=== PATIENT | male | born 1945 | race Two or more races ===

== ENCOUNTER 2022-12-12 10:05 | Inpatient (IN) | payer MEDICARE, OTHER, MEDICAID ==
[~2022-12-12] VITALS: Ht 167.6 cm; Wt 62.6 kg
[2022-12-12] MEDS ORDERED: SODIUM CHLORIDE 0.9% 1000ML BAG (SEPSIS BOLUS) IV ONE (10:30)
[2022-12-12] MEDS ORDERED: KETOROLAC 15MG/ML VIAL IV ONE (10:30)
[2022-12-12] MEDS ORDERED: KETOROLAC 15MG/ML VIAL IV NR (12:15)
[2022-12-12 12:39] LABS: BASOPHILS % 0.5 % (0.0-2.0); EOSINOPHILS % 0.6 % (0.0-5.0); HEMATOCRIT. 42.1 % (42.0-52.0); LYMPHOCYTES % 7.8 % (20.0-50.0); MEAN CORPUSCULAR HEMOGLOBIN 28.3 pg (28.0-32.0); MEAN PLATELET VOLUME 8.7 fl (7.4-10.4); MONOCYTES % 2.7 % (2.0-8.0); NEUTROPHILS % 88.4 % (40.0-76.0); PLATELET 475 x1000/uL (130-400); RED BLOOD CELL COUNT 4.96 mill/uL (4.7-6.1); RED CELL DISTRIBUTION WIDTH 15.7 % (11.6-14.6)
[2022-12-12 12:49] LABS: CHLORIDE 105 mEq/L (98-107)
[2022-12-12 12:51] LABS: INR 1.2; PARTIAL THROMBOPLASTIN TIME 29.7 sec (23.4-31.0); PROTHROMBIN TIME 12.8 sec (9.6-11.0)
[2022-12-12] MEDS ORDERED: VANCOMYCIN 1G PREMIX 200 ML IV ONE (13:00)
[2022-12-12] MEDS ORDERED: PIPERACILLIN/TAZ 3.375G PREMIX 50 ML IV ONE (13:00)
[2022-12-12] MEDS ORDERED: KCL 10MEQ/50ML PREMIX 50 ML IV ONE (13:30)
[2022-12-12] MEDS ORDERED: IPRATROPIUM/ALBUTEROL 0.5-3(2.5)MG/3ML NEB NEB PRN (14:00)
[2022-12-12] MEDS ORDERED: ACETAMINOPHEN 325MG TABLET PO PRN ×2 (14:00)
[2022-12-12] MEDS ORDERED: DOCUSATE SODIUM 100MG CAPSULE PO PRN (14:00)
[2022-12-12] MEDS ORDERED: CLONIDINE 0.1MG TABLET PO PRN (14:00)
[2022-12-12] MEDS ORDERED: NITROGLYCERIN 0.4MG TABLET SL SL PRN (14:00)
[2022-12-12] MEDS ORDERED: ZOLPIDEM TARTRATE 5MG TABLET PO PRN (14:00)
[2022-12-12] MEDS ORDERED: MAGNESIUM/ALUMINUM HYDROXIDE/SIMETHICONE 30ML UDC PO PRN (14:00)
[2022-12-12] MEDS ORDERED: PIPERACILLIN/TAZ 3.375G PREMIX 50 ML IV SCH (14:00)
[2022-12-12] MEDS ORDERED: HYDROCODONE/ACETAMINOPHEN 10/325MG TABLET PO PRN (14:00)
[2022-12-12] MEDS ORDERED: ONDANSETRON HCL 4MG/2ML INJ IV PRN (14:00)
[2022-12-12] MEDS ORDERED: GUAIFENESIN 200MG/10ML SUGAR FREE UDC PO PRN (14:00)
[2022-12-12 14:38] LABS: CLARITY URINE TURBID (CLEAR); COLOR URINE YELLOW (YELLOW); KETONES URINE NEGATIVE (NEGATIVE); LEUKOCYTE ESTERASE URINE 3+ (NEGATIVE); NITRITE URINE NEGATIVE (NEGATIVE); OCCULT BLOOD URINE 3+ (NEGATIVE); PH URINE 5.5 (4.5-8.0); PROTEIN URINE 2+ (NEGATIVE); SPECIFIC GRAVITY URINE 1.006 (1.005-1.030); UROBILINOGEN URINE 0.2 E.U./dL (0.2-1.0)
[2022-12-12] MEDS: MORPHINE SULFATE 2 MG/ML CPJ (NOT FOR IM USE) IV PRN (14:40)
[2022-12-12] MEDS: DEXT 5%/0.9% NACL KCL 20MEQ/L 1,000 ML IV SCH ×2 (14:43→16:01)
[2022-12-12] MEDS ORDERED: POTASSIUM CHLORIDE 20MEQ TABLET SR PO NR (14:45)
[2022-12-12 15:00] LABS: *AMPHETAMINES SCREEN URINE NEGATIVE (NEGATIVE); *BARBITURATES SCREEN URINE NEGATIVE (NEGATIVE); *BENZODIAZEPINES SCREEN URINE NEGATIVE (NEGATIVE); *COCAINE SCREEN URINE NEGATIVE (NEGATIVE); CANNABINOID URINE SCREEN NEGATIVE (NEGATIVE); METHADONE URINE SCREEN NEGATIVE (NEGATIVE); OPIATES URINE SCREEN NEGATIVE (NEGATIVE); PHENCYCLIDINE URINE SCREEN NEGATIVE (NEGATIVE)
[2022-12-12] MEDS: KCL 20MEQ/100ML PREMIX 100 ML IV NR ×4 (15:00→16:17)
[2022-12-12 16:07] LABS: CREATINE KINASE MB FRACTION 1.1 ng/mL (0.5-3.6)
[2022-12-12 16:16] LABS: T4 FREE 1.22 ng/dL (0.76-1.46)
[2022-12-12 18:54] LABS: FOLIC ACID (FOLATE) SERUM 15.7 ng/mL (>5.38)
[2022-12-12] MEDS: ASCORBIC ACID 500 MG TABLET PO SCH (21:06)
[2022-12-12] MEDS: FAMOTIDINE 20MG TABLET PO SCH (21:06)
[2022-12-12] MEDS: ENOXAPARIN 30MG/0.3ML SYR SUBCUT SCH (21:11)
[2022-12-12] MEDS: PIPERACILLIN/TAZOBACTAM 3.375G in DEXT 5% WATER 50ML IV SCH (23:21)
[2022-12-13 05:59] LABS: BASOPHILS % 1.1 % (0.0-2.0); HEMATOCRIT. 29.4 % (42.0-52.0); HEMOGLOBIN. 9.8 g/dL (14.0-18.0); LYMPHOCYTES % 7.9 % (20.0-50.0); MEAN CORPUSCULAR HEMOGLOBIN 28.5 pg (28.0-32.0); MEAN CORPUSCULAR VOLUME 85.4 fL (80.0-94.0); MEAN PLATELET VOLUME 7.9 fl (7.4-10.4); MONOCYTES % 4.3 % (2.0-8.0); NEUTROPHILS % 84.7 % (40.0-76.0); PLATELET 361 x1000/uL (130-400); RED BLOOD CELL COUNT 3.45 mill/uL (4.7-6.1); RED CELL DISTRIBUTION WIDTH 15.7 % (11.6-14.6)
[2022-12-13 06:09] LABS: CHLORIDE 118 mEq/L (98-107)
[2022-12-13 06:20] LABS: PHOSPHORUS 2.8 mg/dL (2.5-4.9)
[2022-12-13 06:23] LABS: CREATINE KINASE MB FRACTION 1.1 ng/mL (0.5-3.6)
[2022-12-13] MEDS: PIPERACILLIN/TAZOBACTAM 3.375G in DEXT 5% WATER 50ML IV SCH ×3 (09:06→21:40)
[2022-12-13] MEDS: ASCORBIC ACID 500 MG TABLET PO SCH ×2 (09:06→22:18)
[2022-12-13] MEDS: ZINC SULFATE 220 MG ( 50 ) CAPSULE PO SCH (09:06)
[2022-12-13] MEDS ORDERED: NALOXONE HCL 0.4MG/ML VIAL IV PRN (09:30)
[2022-12-13 09:33] VITALS: BP 97/48
[2022-12-13] MEDS: DEXT 5%/0.9% NACL KCL 20MEQ/L 1,000 ML IV SCH (11:32)
[2022-12-13] MEDS: VANCOMYCIN 750MG PREMIX 150 ML IV SCH (11:32)
[2022-12-13 12:00] VITALS: BP 108/50
[2022-12-13] MEDS ORDERED: ALBUTEROL (0.083%) 2.5MG/3ML NEB HHN PRN (14:00)
[2022-12-13] MEDS ORDERED: IPRATROPIUM BROMIDE (0.02%) 0.5MG/2.5ML NEB HHN PRN (14:00)
[2022-12-13 16:00] VITALS: BP 106/52
[2022-12-13] MEDS: MORPHINE SULFATE 2 MG/ML CPJ (NOT FOR IM USE) IV PRN (18:13)
[2022-12-13 20:00] VITALS: BP 102/45
[2022-12-13] MEDS: FAMOTIDINE 20MG TABLET PO SCH (21:00)
[2022-12-13] MEDS: ENOXAPARIN 30MG/0.3ML SYR SUBCUT SCH (22:18)
[2022-12-14] VITALS (8 sets, daily range): BP systolic 102–120; BP diastolic 45–70
[2022-12-14] MEDS: MORPHINE SULFATE 2 MG/ML CPJ (NOT FOR IM USE) IV PRN ×3 (04:05→18:38)
[2022-12-14] MEDS: PIPERACILLIN/TAZOBACTAM 3.375G in DEXT 5% WATER 50ML IV SCH (05:26)
[2022-12-14] MEDS: DEXT 5%/0.9% NACL KCL 20MEQ/L 1,000 ML IV SCH ×2 (06:18→13:59)
[2022-12-14] MEDS: ZINC SULFATE 220 MG ( 50 ) CAPSULE PO SCH (09:44)
[2022-12-14] MEDS: FOLIC ACID 1MG TABLET PO SCH (09:44)
[2022-12-14] MEDS: VANCOMYCIN 750MG PREMIX 150 ML IV SCH (09:44)
[2022-12-14] MEDS: ASCORBIC ACID 500 MG TABLET PO SCH ×2 (09:44→20:58)
[2022-12-14] MEDS: THIAMINE HCL 100MG TABLET PO SCH (09:44)
[2022-12-14] MEDS: MENTHOL/LANOLIN/CALAMINE/ZN OX OINT 71GM TOP SCH ×2 (13:58→20:58)
[2022-12-14] MEDS: MEROPENEM 1,000 MG in SODIUM CHLORIDE 0.9% 100 ML IV SCH (20:58)
[2022-12-14] MEDS: ENOXAPARIN 30MG/0.3ML SYR SUBCUT SCH (20:58)
[2022-12-14] MEDS: FAMOTIDINE 20MG TABLET PO SCH (21:00)
[2022-12-15] VITALS: BP 105/68
[2022-12-15] MEDS: DEXT 5%/0.9% NACL KCL 20MEQ/L 1,000 ML IV SCH (03:35)
[2022-12-15 04:00] VITALS: BP 132/72
[2022-12-15 08:00] VITALS: BP 139/76
[2022-12-15 08:31] LABS: BASOPHILS % 1.2 % (0.0-2.0); EOSINOPHILS % 3.1 % (0.0-5.0); HEMOGLOBIN. 11.2 g/dL (14.0-18.0); LYMPHOCYTES % 17.2 % (20.0-50.0); MEAN CORPUSCULAR HEMOGLOBIN 27.9 pg (28.0-32.0); MEAN CORPUSCULAR VOLUME 89.4 fL (80.0-94.0); MEAN PLATELET VOLUME 8.1 fl (7.4-10.4); MONOCYTES % 3.9 % (2.0-8.0); NEUTROPHILS % 74.6 % (40.0-76.0); PLATELET 576 x1000/uL (130-400); RED BLOOD CELL COUNT 4.03 mill/uL (4.7-6.1); RED CELL DISTRIBUTION WIDTH 16.7 % (11.6-14.6)
[2022-12-15] MEDS: MEROPENEM 1,000 MG in SODIUM CHLORIDE 0.9% 100 ML IV SCH ×2 (08:46→20:23)
[2022-12-15] MEDS: MENTHOL/LANOLIN/CALAMINE/ZN OX OINT 71GM TOP SCH ×2 (08:46→20:24)
[2022-12-15] MEDS: FOLIC ACID 1MG TABLET PO SCH (08:46)
[2022-12-15] MEDS: THIAMINE HCL 100MG TABLET PO SCH (08:46)
[2022-12-15] MEDS: ZINC SULFATE 220 MG ( 50 ) CAPSULE PO SCH (08:46)
[2022-12-15] MEDS: ASCORBIC ACID 500 MG TABLET PO SCH ×2 (08:46→20:23)
[2022-12-15] MEDS: DEXTROSE 5% WATER 1,000 ML IV SCH (10:26)
[2022-12-15] MEDS: VANCOMYCIN 750MG PREMIX 150 ML IV SCH (10:26)
[2022-12-15 12:00] VITALS: BP 160/83
[2022-12-15] MEDS ORDERED: HALOPERIDOL LACTATE 5MG/ML VIAL IM PRN (14:15)
[2022-12-15 16:00] VITALS: BP 153/88
[2022-12-15 20:00] VITALS: BP 169/89
[2022-12-15] MEDS: ENOXAPARIN 30MG/0.3ML SYR SUBCUT SCH (20:24)
[2022-12-15] MEDS: FAMOTIDINE 20MG TABLET PO SCH (20:24)
[2022-12-16] VITALS (7 sets, daily range): BP systolic 111–163; BP diastolic 70–89
[2022-12-16 05:39] LABS: HEMATOCRIT 31.3 % (42.0-52.0); HEMOGLOBIN 10.7 g/dL (14.0-18.0); MEAN CORPUSCULAR HEMOGLOBIN 28.9 pg (28.0-32.0); MEAN CORPUSCULAR VOLUME 84.5 fL (80.0-94.0); PLATELET 568 x1000/uL (130-400); RED BLOOD CELL COUNT 3.71 mill/uL (4.7-6.1); RED CELL DISTRIBUTION WIDTH 15.6 % (11.6-14.6)
[2022-12-16 05:43] LABS: CHLORIDE 113 mEq/L (98-107)
[2022-12-16] MEDS: DEXTROSE 5% WATER 1,000 ML IV SCH ×2 (06:54→13:16)
[2022-12-16] MEDS: ASCORBIC ACID 500 MG TABLET PO SCH ×2 (08:14→20:43)
[2022-12-16] MEDS: MEROPENEM 1,000 MG in SODIUM CHLORIDE 0.9% 100 ML IV SCH ×2 (08:14→20:42)
[2022-12-16] MEDS: MENTHOL/LANOLIN/CALAMINE/ZN OX OINT 71GM TOP SCH ×2 (08:14→20:42)
[2022-12-16] MEDS: ZINC SULFATE 220 MG ( 50 ) CAPSULE PO SCH (08:14)
[2022-12-16] MEDS: VANCOMYCIN 750MG PREMIX 150 ML IV SCH (08:14)
[2022-12-16] MEDS: FOLIC ACID 1MG TABLET PO SCH (08:14)
[2022-12-16] MEDS: THIAMINE HCL 100MG TABLET PO SCH (08:26)
[2022-12-16] MEDS: AMLODIPINE 10MG TABLET PO SCH (09:19)
[2022-12-16] MEDS ORDERED: POTASSIUM CHLORIDE 20MEQ TABLET SR PO SCH (10:00)
[2022-12-16] MEDS: ENOXAPARIN 30MG/0.3ML SYR SUBCUT SCH (20:42)
[2022-12-16] MEDS: FAMOTIDINE 20MG TABLET PO SCH (20:46)
[2022-12-17] VITALS: BP 115/66
[2022-12-17] MEDS: DEXTROSE 5% WATER 1,000 ML IV SCH ×2 (02:43→14:14)
[2022-12-17 04:00] VITALS: BP 123/74
[2022-12-17 08:28] VITALS: BP 132/80
[2022-12-17] MEDS: AMLODIPINE 10MG TABLET PO SCH (08:33)
[2022-12-17] MEDS: MEROPENEM 1,000 MG in SODIUM CHLORIDE 0.9% 100 ML IV SCH ×2 (08:33→20:52)
[2022-12-17] MEDS: THIAMINE HCL 100MG TABLET PO SCH (08:33)
[2022-12-17] MEDS: VANCOMYCIN 750MG PREMIX 150 ML IV SCH (08:33)
[2022-12-17] MEDS: ZINC SULFATE 220 MG ( 50 ) CAPSULE PO SCH (08:34)
[2022-12-17] MEDS: MENTHOL/LANOLIN/CALAMINE/ZN OX OINT 71GM TOP SCH ×2 (08:34→20:51)
[2022-12-17] MEDS: ASCORBIC ACID 500 MG TABLET PO SCH ×2 (08:34→20:52)
[2022-12-17] MEDS: FOLIC ACID 1MG TABLET PO SCH (08:42)
[2022-12-17] MEDS ORDERED: POTASSIUM CHLORIDE 20MEQ TABLET SR PO NR (09:00)
[2022-12-17 12:00] VITALS: BP 144/75
[2022-12-17 16:00] VITALS: BP 116/62
[2022-12-17 20:00] VITALS: BP 105/61
[2022-12-17] MEDS: ENOXAPARIN 30MG/0.3ML SYR SUBCUT SCH (20:51)
[2022-12-17] MEDS: FAMOTIDINE 20MG TABLET PO SCH (20:51)
[2022-12-18] VITALS: BP 120/75
[2022-12-18 04:00] VITALS: BP 121/74
[2022-12-18] MEDS: DEXTROSE 5% WATER 1,000 ML IV SCH ×2 (04:51→16:15)
[2022-12-18 08:09] VITALS: BP 114/65
[2022-12-18] MEDS: FOLIC ACID 1MG TABLET PO SCH (08:15)
[2022-12-18] MEDS: THIAMINE HCL 100MG TABLET PO SCH (08:15)
[2022-12-18] MEDS: ASCORBIC ACID 500 MG TABLET PO SCH ×2 (08:15→20:49)
[2022-12-18] MEDS: ZINC SULFATE 220 MG ( 50 ) CAPSULE PO SCH (08:15)
[2022-12-18] MEDS: MEROPENEM 1,000 MG in SODIUM CHLORIDE 0.9% 100 ML IV SCH ×2 (08:15→20:50)
[2022-12-18] MEDS: AMLODIPINE 10MG TABLET PO SCH (08:16)
[2022-12-18] MEDS: MENTHOL/LANOLIN/CALAMINE/ZN OX OINT 71GM TOP SCH ×2 (08:16→20:52)
[2022-12-18 12:00] VITALS: BP 113/64
[2022-12-18] MEDS ORDERED: [UNRECOGNIZED DRUG - REMARK] XX SCH (14:00)
[2022-12-18 16:00] VITALS: BP 118/64
[2022-12-18 20:00] VITALS: BP 108/53
[2022-12-18] MEDS: ENOXAPARIN 30MG/0.3ML SYR SUBCUT SCH (20:49)
[2022-12-18] MEDS: FAMOTIDINE 20MG TABLET PO SCH (20:49)
[2022-12-19] VITALS: BP 111/60
[2022-12-19 04:00] VITALS: BP 117/63
[2022-12-19 08:00] VITALS: BP 125/72
[2022-12-19] MEDS: ASCORBIC ACID 500 MG TABLET PO SCH ×2 (08:16→21:08)
[2022-12-19] MEDS: ZINC SULFATE 220 MG ( 50 ) CAPSULE PO SCH (08:16)
[2022-12-19] MEDS: THIAMINE HCL 100MG TABLET PO SCH (08:16)
[2022-12-19] MEDS: AMLODIPINE 10MG TABLET PO SCH (08:16)
[2022-12-19] MEDS: FOLIC ACID 1MG TABLET PO SCH (08:16)
[2022-12-19] MEDS: MENTHOL/LANOLIN/CALAMINE/ZN OX OINT 71GM TOP SCH ×2 (08:17→21:09)
[2022-12-19] MEDS: MEROPENEM 1,000 MG in SODIUM CHLORIDE 0.9% 100 ML IV SCH ×2 (08:17→21:08)
[2022-12-19] MEDS: DEXTROSE 5% WATER 1,000 ML IV SCH ×2 (08:17→21:09)
[2022-12-19 12:00] VITALS: BP 123/70
[2022-12-19 16:06] VITALS: BP 124/79
[2022-12-19 20:00] VITALS: BP 130/68
[2022-12-19] MEDS: ENOXAPARIN 30MG/0.3ML SYR SUBCUT SCH (21:08)
[2022-12-19] MEDS: FAMOTIDINE 20MG TABLET PO SCH (21:08)
[2022-12-20] VITALS (7 sets, daily range): BP systolic 91–135; BP diastolic 50–69
[2022-12-20] MEDS: MEROPENEM 1,000 MG in SODIUM CHLORIDE 0.9% 100 ML IV SCH ×2 (08:17→21:11)
[2022-12-20] MEDS: AMLODIPINE 10MG TABLET PO SCH (08:18)
[2022-12-20] MEDS: ZINC SULFATE 220 MG ( 50 ) CAPSULE PO SCH (08:18)
[2022-12-20] MEDS: FOLIC ACID 1MG TABLET PO SCH (08:18)
[2022-12-20] MEDS: THIAMINE HCL 100MG TABLET PO SCH (08:18)
[2022-12-20] MEDS: MENTHOL/LANOLIN/CALAMINE/ZN OX OINT 71GM TOP SCH ×2 (08:18→21:10)
[2022-12-20] MEDS: ASCORBIC ACID 500 MG TABLET PO SCH ×2 (08:18→21:09)
[2022-12-20] MEDS: DEXTROSE 5% WATER 1,000 ML IV SCH (08:22)
[2022-12-20 11:41] LABS: CLARITY URINE CLEAR (CLEAR); COLOR URINE YELLOW (YELLOW); KETONES URINE NEGATIVE (NEGATIVE); LEUKOCYTE ESTERASE URINE 1+ (NEGATIVE); NITRITE URINE NEGATIVE (NEGATIVE); OCCULT BLOOD URINE NEGATIVE (NEGATIVE); PH URINE 6.5 (4.5-8.0); PROTEIN URINE TRACE (NEGATIVE); SPECIFIC GRAVITY URINE 1.009 (1.005-1.030); UROBILINOGEN URINE 0.2 E.U./dL (0.2-1.0)
[2022-12-20 15:31] LABS: BASOPHILS % 0.4 % (0.0-2.0); EOSINOPHILS % 2.5 % (0.0-5.0); HEMATOCRIT. 37.2 % (42.0-52.0); HEMOGLOBIN. 12.3 g/dL (14.0-18.0); LYMPHOCYTES % 23.1 % (20.0-50.0); MEAN CORPUSCULAR HEMOGLOBIN 28.4 pg (28.0-32.0); MEAN CORPUSCULAR VOLUME 85.8 fL (80.0-94.0); MEAN PLATELET VOLUME 7.8 fl (7.4-10.4); MONOCYTES % 6.5 % (2.0-8.0); NEUTROPHILS % 67.5 % (40.0-76.0); PLATELET 397 x1000/uL (130-400); RED BLOOD CELL COUNT 4.34 mill/uL (4.7-6.1); RED CELL DISTRIBUTION WIDTH 15.4 % (11.6-14.6)
[2022-12-20] MEDS: FAMOTIDINE 20MG TABLET PO SCH (21:10)
[2022-12-21] VITALS: BP 112/61
[2022-12-21] MEDS: DEXTROSE 5% WATER 1,000 ML IV SCH ×2 (00:57→12:12)
[2022-12-21 04:00] VITALS: BP 116/59
[2022-12-21 06:59] LABS: MEAN CORPUSCULAR HEMOGLOBIN 28.4 pg (28.0-32.0); MEAN CORPUSCULAR VOLUME 85.4 fL (80.0-94.0); PLATELET 364 x1000/uL (130-400); RED BLOOD CELL COUNT 3.86 mill/uL (4.7-6.1); RED CELL DISTRIBUTION WIDTH 15.4 % (11.6-14.6)
[2022-12-21 08:00] VITALS: BP 123/66
[2022-12-21] MEDS: MEROPENEM 1,000 MG in SODIUM CHLORIDE 0.9% 100 ML IV SCH ×2 (08:09→20:42)
[2022-12-21] MEDS: THIAMINE HCL 100MG TABLET PO SCH (08:09)
[2022-12-21] MEDS: ZINC SULFATE 220 MG ( 50 ) CAPSULE PO SCH (08:09)
[2022-12-21] MEDS: AMLODIPINE 10MG TABLET PO SCH (08:09)
[2022-12-21] MEDS: ASCORBIC ACID 500 MG TABLET PO SCH ×2 (08:09→20:42)
[2022-12-21] MEDS: MENTHOL/LANOLIN/CALAMINE/ZN OX OINT 71GM TOP SCH ×2 (08:10→22:11)
[2022-12-21] MEDS: FOLIC ACID 1MG TABLET PO SCH (08:10)
[2022-12-21 12:00] VITALS: BP 102/67
[2022-12-21] MEDS ORDERED: ROPIVACAINE HCL 1% 20 ML VIAL EPI ONE (13:03)
[2022-12-21] MEDS ORDERED: EPINEPHRINE 1:1000 1 MG/ML AMP ONE (13:04)
[2022-12-21] MEDS ORDERED: KETOROLAC 30MG/ML VIAL ONE (13:04)
[2022-12-21] MEDS ORDERED: MORPHINE SULFATE 10 MG/ML CPJ ONE (13:04)
[2022-12-21] MEDS ORDERED: VANCOMYCIN HCL 1 GM/VIAL ONE (13:05)
[2022-12-21] MEDS ORDERED: TRANEXAMIC ACID 1,000 MG/10 ML IV ONE (13:15)
[2022-12-21] MEDS ORDERED: TRANEXAMIC ACID 1,000 MG in SODIUM CHLORIDE 0.9% 50 ML IV SCH (13:30)
[2022-12-21 16:00] VITALS: BP 117/56
[2022-12-21] MEDS ORDERED: LIDOCAINE HCL/EPINEPHRINE 1%-EPI 1:100,000 20 ML VIAL ONE (16:01)
[2022-12-21] MEDS ORDERED: LIDOCAINE HCL 1%/EPI 1:200,000 30 ML VIAL ONE (16:02)
[2022-12-21] MEDS ORDERED: SUCCINYLCHOLINE CHLORIDE 200MG/10ML IV ONE (16:40)
[2022-12-21] MEDS ORDERED: CEFAZOLIN 1000MG PREMIX 50 ML IV SCH ×2 (16:40→20:00)
[2022-12-21] MEDS ORDERED: ETOMIDATE 2MG/ML 10ML VIAL IV ONE (16:40)
[2022-12-21] MEDS ORDERED: CEFAZOLIN SODIUM 1000MG/VIAL ONE (16:40)
[2022-12-21] MEDS ORDERED: DEXAMETHASONE 4MG/ML 1ML VIAL ONE (16:40)
[2022-12-21] MEDS ORDERED: ROCURONIUM BROMIDE 10MG/ML VIAL 5ML IV ONE (16:40)
[2022-12-21] MEDS ORDERED: ONDANSETRON HCL 4MG/2ML INJ ONE (16:40)
[2022-12-21] MEDS ORDERED: GLYCOPYRROLATE 0.2 MG/ML 2ML VIAL ONE ×2 (16:40→16:41)
[2022-12-21] MEDS ORDERED: NEOSTIGMINE METHYLSULFATE 1MG/ML 10 ML VIAL ONE (16:40)
[2022-12-21] MEDS ORDERED: MIDAZOLAM HCL 2 MG/2 ML VIAL ONE (16:41)
[2022-12-21] MEDS ORDERED: FENTANYL CITRATE/PF 50MCG/ML 2ML VIAL ONE (16:41)
[2022-12-21] MEDS ORDERED: POLYMYXIN B SULFATE 500000 UNITS/VIAL ONE (16:47)
[2022-12-21 20:00] VITALS: BP 105/53
[2022-12-21] MEDS: FAMOTIDINE 20MG TABLET PO SCH (20:41)
[2022-12-21] MEDS: CEFAZOLIN 1000MG PREMIX 50 ML IV SCH (22:12)
[2022-12-22] VITALS: BP 96/53
[2022-12-22] MEDS: DEXTROSE 5% WATER 1,000 ML IV SCH ×2 (02:30→11:16)
[2022-12-22 04:00] VITALS: BP 100/53
[2022-12-22] MEDS: CEFAZOLIN 1000MG PREMIX 50 ML IV SCH ×3 (05:38→21:53)
[2022-12-22 08:00] VITALS: BP 104/58
[2022-12-22] MEDS: MEROPENEM 1,000 MG in SODIUM CHLORIDE 0.9% 100 ML IV SCH ×2 (08:31→21:53)
[2022-12-22] MEDS: ZINC SULFATE 220 MG ( 50 ) CAPSULE PO SCH (08:31)
[2022-12-22] MEDS: MENTHOL/LANOLIN/CALAMINE/ZN OX OINT 71GM TOP SCH ×2 (08:32→21:55)
[2022-12-22] MEDS: THIAMINE HCL 100MG TABLET PO SCH (08:32)
[2022-12-22] MEDS: ASCORBIC ACID 500 MG TABLET PO SCH ×2 (08:32→21:54)
[2022-12-22] MEDS: FOLIC ACID 1MG TABLET PO SCH (08:32)
[2022-12-22] MEDS: AMLODIPINE 10MG TABLET PO SCH (08:38)
[2022-12-22 12:00] VITALS: BP 110/62
[2022-12-22 16:00] VITALS: BP 100/56
[2022-12-22 20:00] VITALS: BP 111/58
[2022-12-22] MEDS: ENOXAPARIN 30MG/0.3ML SYR SUBCUT SCH (21:54)
[2022-12-22] MEDS: FAMOTIDINE 20MG TABLET PO SCH (21:54)
[2022-12-23] VITALS: BP 114/61
[2022-12-23 04:00] VITALS: BP 108/56
[2022-12-23] MEDS: CEFAZOLIN 1000MG PREMIX 50 ML IV SCH ×2 (05:33→13:51)
[2022-12-23] MEDS: DEXTROSE 5% WATER 1,000 ML IV SCH (05:33)
[2022-12-23 08:00] VITALS: BP 123/62
[2022-12-23] MEDS: MENTHOL/LANOLIN/CALAMINE/ZN OX OINT 71GM TOP SCH (08:19)
[2022-12-23] MEDS: AMLODIPINE 10MG TABLET PO SCH (08:19)
[2022-12-23] MEDS: THIAMINE HCL 100MG TABLET PO SCH (08:19)
[2022-12-23] MEDS: MEROPENEM 1,000 MG in SODIUM CHLORIDE 0.9% 100 ML IV SCH (08:19)
[2022-12-23] MEDS: FOLIC ACID 1MG TABLET PO SCH (08:19)
[2022-12-23] MEDS: ZINC SULFATE 220 MG ( 50 ) CAPSULE PO SCH (08:19)
[2022-12-23] MEDS: ASCORBIC ACID 500 MG TABLET PO SCH (08:20)
[2022-12-23 09:48] VITALS: BP 123/62
[2022-12-23 12:00] VITALS: BP 134/68
== END 2022-12-23 14:25 | DRG 853 ==
LOC: ER 10:05 → EDBD 10:05 → MICUSO 13:32 → SUPCPDRO 13:45 → 8WST 12-13 09:35
PROVIDERS: ADMIT Internal Medicine; ATTEND Internal Medicine
PROC: 0SRS0JA Replacement of Left Hip Joint, Femoral Surface with Synthetic Substitute, Uncemented, Open Approach (ICD-10-PCS; principal; 2022-12-21)
DX: A41.51 Sepsis due to Escherichia coli [E. coli] (principal); E43 Unspecified severe protein-calorie malnutrition; S72.012A Unspecified intracapsular fracture of left femur, initial encounter for closed fracture; N17.0 Acute kidney failure with tubular necrosis; G92.8 Other toxic encephalopathy; E87.0 Hyperosmolality and hypernatremia; N13.6 Pyonephrosis; E87.6 Hypokalemia; D64.9 Anemia, unspecified; N18.9 Chronic kidney disease, unspecified; I16.0 Hypertensive urgency; Z20.822 Contact with and (suspected) exposure to COVID-19; R74.01 Elevation of levels of liver transaminase levels; M48.02 Spinal stenosis, cervical region; M48.061 Spinal stenosis, lumbar region without neurogenic claudication; R29.6 Repeated falls; N32.0 Bladder-neck obstruction; G89.29 Other chronic pain; I12.9 Hypertensive chronic kidney disease with stage 1 through stage 4 chronic kidney disease, or unspecified chronic kidney disease; W19.XXXA Unspecified fall, initial encounter; Z68.22 Body mass index [BMI] 22.0-22.9, adult; Z74.01 Bed confinement status; Z86.73 Personal history of transient ischemic attack (TIA), and cerebral infarction without residual deficits; Z82.1 Family history of blindness and visual loss; Y93.89 Activity, other specified; Y92.89 Other specified places as the place of occurrence of the external cause; Y99.8 Other external cause status
CPT/HCPCS: 36415; 71045; 72170; 72192; 73501; 76770; 80048; 80053; 80061; 80202; 80305; 81003; 82040; 82550; 82553; 82607; 82746; 83540; 83550; 83605; 83735; 83880; 84100; 84134; 84145; 84439; 84443; 84484; 85025; 85027; 86850; 86900; 87077; 87186; 87426; 88311; 93005; 93306; 93970; 97162; 97166; 97530; 99285; A6261; C1893; J0330; J0690; J1100; J1630; J1650; J1885; J2185; J2250; J2270; J2405; J2543; J2710; J2795; J3010; J3370; J3480; J3490; J7030; J7050; J7060; J7070; A4315; C1776

== ENCOUNTER 2022-12-23 14:23 | Inpatient (IN) | payer MEDICARE, OTHER, MEDICAID ==
[~2022-12-23] VITALS: Ht 167.6 cm; Wt 59.0 kg
[2022-12-23 14:30] VITALS: BP_SYST 127; BP_DIAS 62; BP_DIAS 68
[2022-12-23] MEDS ORDERED: CLONIDINE 0.1MG TABLET PO PRN (15:15)
[2022-12-23] MEDS ORDERED: MAGNESIUM/ALUMINUM HYDROXIDE/SIMETHICONE 30ML UDC PO PRN (15:15)
[2022-12-23] MEDS ORDERED: HALOPERIDOL LACTATE 5MG/ML VIAL IM PRN (15:15)
[2022-12-23] MEDS ORDERED: GUAIFENESIN 200MG/10ML SUGAR FREE UDC PO PRN (15:15)
[2022-12-23] MEDS ORDERED: ACETAMINOPHEN 325MG TABLET PO PRN (15:15)
[2022-12-23] MEDS ORDERED: ONDANSETRON HCL 4MG/2ML INJ IV PRN (15:15)
[2022-12-23] MEDS ORDERED: NITROGLYCERIN 0.4MG TABLET SL SL PRN (15:15)
[2022-12-23 19:35] VITALS: BP 121/47
[2022-12-23] MEDS: FAMOTIDINE 20MG TABLET PO SCH (20:28)
[2022-12-23] MEDS: ASCORBIC ACID 500 MG TABLET PO SCH (20:28)
[2022-12-23] MEDS: ENOXAPARIN 30MG/0.3ML SYR SUBCUT SCH (20:35)
[2022-12-23] MEDS: MEROPENEM 1,000 MG in SODIUM CHLORIDE 0.9% 100 ML IV SCH (21:00)
[2022-12-23] MEDS: MENTHOL/LANOLIN/CALAMINE/ZN OX OINT 71GM TOP SCH (21:00)
[2022-12-24 06:45] LABS: BASOPHILS % 0.9 % (0.0-2.0); EOSINOPHILS % 1.2 % (0.0-5.0); HEMATOCRIT. 32.5 % (42.0-52.0); HEMOGLOBIN. 10.9 g/dL (14.0-18.0); LYMPHOCYTES % 32.6 % (20.0-50.0); MEAN CORPUSCULAR HEMOGLOBIN 28.2 pg (28.0-32.0); MEAN CORPUSCULAR VOLUME 84.2 fL (80.0-94.0); MEAN PLATELET VOLUME 8.3 fl (7.4-10.4); MONOCYTES % 6.3 % (2.0-8.0); PLATELET 321 x1000/uL (130-400); RED BLOOD CELL COUNT 3.86 mill/uL (4.7-6.1); RED CELL DISTRIBUTION WIDTH 15.2 % (11.6-14.6)
[2022-12-24] MEDS: ACETAMINOPHEN 325MG TABLET PO PRN ×2 (07:08→22:50)
[2022-12-24 07:34] LABS: CHLORIDE 107 mEq/L (98-107)
[2022-12-24 08:00] VITALS: BP 122/66
[2022-12-24] MEDS: ASCORBIC ACID 500 MG TABLET PO SCH ×2 (09:09→20:58)
[2022-12-24] MEDS: AMLODIPINE 10MG TABLET PO SCH (09:10)
[2022-12-24] MEDS: THIAMINE HCL 100MG TABLET PO SCH (09:10)
[2022-12-24] MEDS: ZINC SULFATE 220 MG ( 50 ) CAPSULE PO SCH (09:10)
[2022-12-24] MEDS: FOLIC ACID 1MG TABLET PO SCH (09:10)
[2022-12-24] MEDS: MENTHOL/LANOLIN/CALAMINE/ZN OX OINT 71GM TOP SCH ×2 (09:11→21:07)
[2022-12-24] MEDS: DEXTROSE 5% WATER 1,000 ML IV SCH ×2 (09:30→17:55)
[2022-12-24] MEDS: MEROPENEM 1,000 MG in SODIUM CHLORIDE 0.9% 100 ML IV SCH ×2 (09:47→21:08)
[2022-12-24 12:00] VITALS: BP 120/70
[2022-12-24] MEDS ORDERED: POTASSIUM CHLORIDE 20MEQ TABLET SR PO NR (12:45)
[2022-12-24 16:00] VITALS: BP 125/74
[2022-12-24 19:41] VITALS: BP 112/48
[2022-12-24] MEDS: ENOXAPARIN 30MG/0.3ML SYR SUBCUT SCH (20:58)
[2022-12-24] MEDS: FAMOTIDINE 20MG TABLET PO SCH (20:58)
[2022-12-24] MEDS: DOCUSATE SODIUM 100MG CAPSULE PO PRN (20:58)
[2022-12-25 06:01] LABS: FERRITIN 612 ng/mL (22-322)
[2022-12-25 06:15] LABS: BASOPHILS % 1.1 % (0.0-2.0); EOSINOPHILS % 2.7 % (0.0-5.0); HEMATOCRIT. 31.1 % (42.0-52.0); HEMOGLOBIN. 10.1 g/dL (14.0-18.0); LYMPHOCYTES % 33.1 % (20.0-50.0); MEAN CORPUSCULAR VOLUME 85.7 fL (80.0-94.0); MEAN PLATELET VOLUME 8.3 fl (7.4-10.4); MONOCYTES % 6.2 % (2.0-8.0); NEUTROPHILS % 56.9 % (40.0-76.0); PLATELET 323 x1000/uL (130-400); RED BLOOD CELL COUNT 3.63 mill/uL (4.7-6.1); RED CELL DISTRIBUTION WIDTH 15.3 % (11.6-14.6)
[2022-12-25 06:27] LABS: CHLORIDE 110 mEq/L (98-107)
[2022-12-25 06:45] LABS: TOTAL IRON BINDING CAPACITY 185 ug/dL (250-450)
[2022-12-25 07:45] LABS: VITAMIN B12 SERUM 355 pg/mL (211-911)
[2022-12-25 08:00] VITALS: BP 107/62
[2022-12-25] MEDS ORDERED: LACTULOSE 20G/30ML UDC PO SCH (08:45)
[2022-12-25] MEDS: ASCORBIC ACID 500 MG TABLET PO SCH ×2 (08:49→20:21)
[2022-12-25] MEDS: FOLIC ACID 1MG TABLET PO SCH (08:49)
[2022-12-25] MEDS: THIAMINE HCL 100MG TABLET PO SCH (08:49)
[2022-12-25] MEDS: ZINC SULFATE 220 MG ( 50 ) CAPSULE PO SCH (08:50)
[2022-12-25] MEDS: AMLODIPINE 10MG TABLET PO SCH (08:52)
[2022-12-25] MEDS: MEROPENEM 1,000 MG in SODIUM CHLORIDE 0.9% 100 ML IV SCH ×2 (08:52→20:19)
[2022-12-25] MEDS: MENTHOL/LANOLIN/CALAMINE/ZN OX OINT 71GM TOP SCH ×2 (08:53→20:24)
[2022-12-25] MEDS: DEXTROSE 5% WATER 1,000 ML IV SCH ×3 (09:30→20:35)
[2022-12-25] MEDS ORDERED: NALOXONE HCL 0.4MG/ML VIAL IV PRN (09:45)
[2022-12-25 12:00] VITALS: BP 112/69
[2022-12-25] MEDS: FERROUS SULFATE 325MG TABLET PO SCH ×2 (12:54→17:29)
[2022-12-25] MEDS: CYANOCOBALAMIN 1000MCG/ML VIAL IM SCH (12:54)
[2022-12-25 20:00] VITALS: BP 123/64
[2022-12-25] MEDS: ACETAMINOPHEN 325MG TABLET PO PRN (20:20)
[2022-12-25] MEDS: FAMOTIDINE 20MG TABLET PO SCH (20:20)
[2022-12-25] MEDS: ENOXAPARIN 30MG/0.3ML SYR SUBCUT SCH (20:22)
[2022-12-26] MEDS: DEXTROSE 5% WATER 1,000 ML IV SCH ×2 (06:18→23:15)
[2022-12-26] MEDS: ACETAMINOPHEN 325MG TABLET PO PRN ×3 (06:31→16:24)
[2022-12-26 08:00] VITALS: BP 146/72
[2022-12-26] MEDS: ASCORBIC ACID 500 MG TABLET PO SCH ×3 (09:00→21:04)
[2022-12-26] MEDS: MENTHOL/LANOLIN/CALAMINE/ZN OX OINT 71GM TOP SCH ×2 (09:00→21:48)
[2022-12-26] MEDS: MEROPENEM 1,000 MG in SODIUM CHLORIDE 0.9% 100 ML IV SCH ×2 (10:37→21:04)
[2022-12-26] MEDS: THIAMINE HCL 100MG TABLET PO SCH (10:38)
[2022-12-26] MEDS: FERROUS SULFATE 325MG TABLET PO SCH ×3 (10:39→13:14)
[2022-12-26] MEDS: AMLODIPINE 10MG TABLET PO SCH (10:39)
[2022-12-26] MEDS: CYANOCOBALAMIN 1000MCG/ML VIAL IM SCH (10:40)
[2022-12-26] MEDS: ZINC SULFATE 220 MG ( 50 ) CAPSULE PO SCH (10:40)
[2022-12-26] MEDS: FOLIC ACID 1MG TABLET PO SCH (10:42)
[2022-12-26 20:00] VITALS: BP 111/62
[2022-12-26] MEDS: FAMOTIDINE 20MG TABLET PO SCH (21:04)
[2022-12-26] MEDS: ENOXAPARIN 30MG/0.3ML SYR SUBCUT SCH (21:05)
[2022-12-27] MEDS: HYDROCODONE/ACETAMINOPHEN 10/325MG TABLET PO PRN ×2 (00:40→18:16)
[2022-12-27 08:00] VITALS: BP 120/66
[2022-12-27] MEDS: FERROUS SULFATE 325MG TABLET PO SCH ×3 (08:53→17:53)
[2022-12-27] MEDS: FOLIC ACID 1MG TABLET PO SCH (08:53)
[2022-12-27] MEDS: ASCORBIC ACID 500 MG TABLET PO SCH ×2 (08:53→08:55)
[2022-12-27] MEDS: AMLODIPINE 10MG TABLET PO SCH (08:54)
[2022-12-27] MEDS: THIAMINE HCL 100MG TABLET PO SCH (08:54)
[2022-12-27] MEDS: ZINC SULFATE 220 MG ( 50 ) CAPSULE PO SCH (08:54)
[2022-12-27] MEDS: CYANOCOBALAMIN 1000MCG/ML VIAL IM SCH (08:55)
[2022-12-27] MEDS: MENTHOL/LANOLIN/CALAMINE/ZN OX OINT 71GM TOP SCH ×2 (09:00→21:47)
[2022-12-27] MEDS: MEROPENEM 1,000 MG in SODIUM CHLORIDE 0.9% 100 ML IV SCH ×2 (09:00→21:46)
[2022-12-27 19:41] VITALS: BP 112/56
[2022-12-27] MEDS: FAMOTIDINE 20MG TABLET PO SCH (21:46)
[2022-12-27] MEDS: FINASTERIDE 5MG TABLET PO SCH (21:47)
[2022-12-27] MEDS: ENOXAPARIN 30MG/0.3ML SYR SUBCUT SCH (21:47)
[2022-12-27] MEDS: ACETAMINOPHEN 325MG TABLET PO PRN (21:51)
[2022-12-27] MEDS: TAMSULOSIN HCL 0.4MG SR CAPSULE PO SCH (21:52)
[2022-12-28 08:00] VITALS: BP 104/55
[2022-12-28] MEDS: THIAMINE HCL 100MG TABLET PO SCH (08:33)
[2022-12-28] MEDS: ASCORBIC ACID 500 MG TABLET PO SCH (08:33)
[2022-12-28] MEDS: FOLIC ACID 1MG TABLET PO SCH (08:33)
[2022-12-28] MEDS: ZINC SULFATE 220 MG ( 50 ) CAPSULE PO SCH (08:33)
[2022-12-28] MEDS: FERROUS SULFATE 325MG TABLET PO SCH ×3 (08:34→17:00)
[2022-12-28] MEDS: CYANOCOBALAMIN 1000MCG/ML VIAL IM SCH (08:34)
[2022-12-28] MEDS: AMLODIPINE 10MG TABLET PO SCH (08:35)
[2022-12-28] MEDS: HYDROCODONE/ACETAMINOPHEN 10/325MG TABLET PO PRN (08:36)
[2022-12-28] MEDS: MENTHOL/LANOLIN/CALAMINE/ZN OX OINT 71GM TOP SCH ×2 (09:00→21:41)
[2022-12-28 12:00] VITALS: BP 96/52
[2022-12-28 16:00] VITALS: BP 101/4
[2022-12-28 17:38] LABS: CLARITY URINE TURBID (CLEAR); COLOR URINE YELLOW (YELLOW); KETONES URINE NEGATIVE (NEGATIVE); LEUKOCYTE ESTERASE URINE 3+ (NEGATIVE); NITRITE URINE NEGATIVE (NEGATIVE); OCCULT BLOOD URINE 1+ (NEGATIVE); PROTEIN URINE TRACE (NEGATIVE); SPECIFIC GRAVITY URINE 1.004 (1.005-1.030); UROBILINOGEN URINE 0.2 E.U./dL (0.2-1.0)
[2022-12-28 20:00] VITALS: BP 114/53
[2022-12-28] MEDS: TAMSULOSIN HCL 0.4MG SR CAPSULE PO SCH (21:41)
[2022-12-28] MEDS: ENOXAPARIN 30MG/0.3ML SYR SUBCUT SCH (21:41)
[2022-12-28] MEDS: FAMOTIDINE 20MG TABLET PO SCH (21:41)
[2022-12-28] MEDS: FINASTERIDE 5MG TABLET PO SCH (21:41)
[2022-12-28] MEDS: ACETAMINOPHEN 325MG TABLET PO PRN (21:42)
[2022-12-28 22:45] VITALS: BP 114/53
[2022-12-29 08:00] VITALS: BP 100/51
[2022-12-29] MEDS: FOLIC ACID 1MG TABLET PO SCH (08:27)
[2022-12-29] MEDS: ACETAMINOPHEN 325MG TABLET PO PRN (08:27)
[2022-12-29] MEDS: THIAMINE HCL 100MG TABLET PO SCH (08:27)
[2022-12-29] MEDS: FERROUS SULFATE 325MG TABLET PO SCH ×3 (08:27→17:08)
[2022-12-29] MEDS: CYANOCOBALAMIN 1000MCG/ML VIAL IM SCH (08:27)
[2022-12-29] MEDS: ASCORBIC ACID 500 MG TABLET PO SCH (08:27)
[2022-12-29] MEDS: ZINC SULFATE 220 MG ( 50 ) CAPSULE PO SCH (08:27)
[2022-12-29] MEDS: AMLODIPINE 10MG TABLET PO SCH (09:00)
[2022-12-29] MEDS: MENTHOL/LANOLIN/CALAMINE/ZN OX OINT 71GM TOP SCH ×2 (09:00→21:02)
[2022-12-29 20:00] VITALS: BP 122/53
[2022-12-29] MEDS: FINASTERIDE 5MG TABLET PO SCH (21:00)
[2022-12-29] MEDS: TAMSULOSIN HCL 0.4MG SR CAPSULE PO SCH (21:00)
[2022-12-29] MEDS: FAMOTIDINE 20MG TABLET PO SCH (21:00)
[2022-12-29] MEDS: ENOXAPARIN 30MG/0.3ML SYR SUBCUT SCH (21:01)
[2022-12-29] MEDS: HYDROCODONE/ACETAMINOPHEN 5/325MG TABLET PO PRN (21:02)
[2022-12-30 06:24] LABS: BASOPHILS % 0.6 % (0.0-2.0); CHLORIDE 108 mEq/L (98-107); EOSINOPHILS % 8.5 % (0.0-5.0); HEMOGLOBIN. 9.1 g/dL (14.0-18.0); LYMPHOCYTES % 39.7 % (20.0-50.0); MEAN CORPUSCULAR HEMOGLOBIN 28.5 pg (28.0-32.0); MEAN CORPUSCULAR VOLUME 84.8 fL (80.0-94.0); MEAN PLATELET VOLUME 7.3 fl (7.4-10.4); MONOCYTES % 9.1 % (2.0-8.0); NEUTROPHILS % 42.1 % (40.0-76.0); PLATELET 321 x1000/uL (130-400); RED BLOOD CELL COUNT 3.19 mill/uL (4.7-6.1); RED CELL DISTRIBUTION WIDTH 15.5 % (11.6-14.6)
[2022-12-30 08:00] VITALS: BP 109/51
[2022-12-30] MEDS: ASCORBIC ACID 500 MG TABLET PO SCH (09:00)
[2022-12-30] MEDS: AMLODIPINE 10MG TABLET PO SCH (09:00)
[2022-12-30] MEDS: ZINC SULFATE 220 MG ( 50 ) CAPSULE PO SCH (09:01)
[2022-12-30] MEDS: HYDROCODONE/ACETAMINOPHEN 5/325MG TABLET PO PRN (09:01)
[2022-12-30] MEDS: FOLIC ACID 1MG TABLET PO SCH (09:02)
[2022-12-30] MEDS: THIAMINE HCL 100MG TABLET PO SCH (09:02)
[2022-12-30] MEDS: FERROUS SULFATE 325MG TABLET PO SCH ×3 (09:02→16:22)
[2022-12-30] MEDS: CYANOCOBALAMIN 1000MCG/ML VIAL IM SCH (09:02)
[2022-12-30] MEDS: MENTHOL/LANOLIN/CALAMINE/ZN OX OINT 71GM TOP SCH ×2 (09:07→21:07)
[2022-12-30] MEDS ORDERED: POTASSIUM CHLORIDE 20MEQ TABLET SR PO NR (16:15)
[2022-12-30 19:10] LABS: 25-HYDROXY VITAMIN D3 17 ng/mL (.)
[2022-12-30 20:00] VITALS: BP 96/50
[2022-12-30] MEDS: TAMSULOSIN HCL 0.4MG SR CAPSULE PO SCH (21:00)
[2022-12-30] MEDS: FAMOTIDINE 20MG TABLET PO SCH (21:04)
[2022-12-30] MEDS: FINASTERIDE 5MG TABLET PO SCH (21:04)
[2022-12-30] MEDS: ENOXAPARIN 30MG/0.3ML SYR SUBCUT SCH (21:05)
[2022-12-31] MEDS: DEXTROSE 5% WATER 1,000 ML IV SCH ×3 (05:37→23:15)
[2022-12-31 08:00] VITALS: BP 114/68
[2022-12-31] MEDS: FERROUS SULFATE 325MG TABLET PO SCH ×3 (09:00→16:53)
[2022-12-31] MEDS: MENTHOL/LANOLIN/CALAMINE/ZN OX OINT 71GM TOP SCH ×2 (09:00→20:24)
[2022-12-31] MEDS: CYANOCOBALAMIN 1000MCG/ML VIAL IM SCH (10:26)
[2022-12-31] MEDS: THIAMINE HCL 100MG TABLET PO SCH (10:27)
[2022-12-31] MEDS: ZINC SULFATE 220 MG ( 50 ) CAPSULE PO SCH (10:27)
[2022-12-31] MEDS: FOLIC ACID 1MG TABLET PO SCH (10:28)
[2022-12-31] MEDS: AMLODIPINE 10MG TABLET PO SCH (10:29)
[2022-12-31] MEDS: ASCORBIC ACID 500 MG TABLET PO SCH (10:29)
[2022-12-31] MEDS: ERGOCALCIFEROL 50000UNITS CAPSULE PO SCH (15:27)
[2022-12-31 20:17] VITALS: BP 112/69
[2022-12-31] MEDS: FAMOTIDINE 20MG TABLET PO SCH (20:23)
[2022-12-31] MEDS: FINASTERIDE 5MG TABLET PO SCH (20:23)
[2022-12-31] MEDS: ENOXAPARIN 30MG/0.3ML SYR SUBCUT SCH (20:24)
[2022-12-31] MEDS: TAMSULOSIN HCL 0.4MG SR CAPSULE PO SCH (20:28)
[2023-01-01 08:00] VITALS: BP 121/59
[2023-01-01] MEDS: ZINC SULFATE 220 MG ( 50 ) CAPSULE PO SCH (08:54)
[2023-01-01] MEDS: THIAMINE HCL 100MG TABLET PO SCH (08:54)
[2023-01-01] MEDS: AMLODIPINE 10MG TABLET PO SCH (08:54)
[2023-01-01] MEDS: FOLIC ACID 1MG TABLET PO SCH (08:54)
[2023-01-01] MEDS: ASCORBIC ACID 500 MG TABLET PO SCH (08:55)
[2023-01-01] MEDS: FERROUS SULFATE 325MG TABLET PO SCH ×3 (08:55→17:39)
[2023-01-01] MEDS: MENTHOL/LANOLIN/CALAMINE/ZN OX OINT 71GM TOP SCH ×2 (08:56→21:52)
[2023-01-01] MEDS ORDERED: POTASSIUM CHLORIDE 20MEQ TABLET SR PO SCH (12:00)
[2023-01-01] MEDS: DEXTROSE 5% WATER 1,000 ML IV SCH (12:48)
[2023-01-01] MEDS: HYDROCODONE/ACETAMINOPHEN 5/325MG TABLET PO PRN (13:42)
[2023-01-01 19:47] VITALS: BP 130/67
[2023-01-01] MEDS: FAMOTIDINE 20MG TABLET PO SCH (21:48)
[2023-01-01] MEDS: ACETAMINOPHEN 325MG TABLET PO PRN (21:48)
[2023-01-01] MEDS: FINASTERIDE 5MG TABLET PO SCH (21:49)
[2023-01-01] MEDS: TAMSULOSIN HCL 0.4MG SR CAPSULE PO SCH (21:49)
[2023-01-01] MEDS: ENOXAPARIN 30MG/0.3ML SYR SUBCUT SCH (21:49)
[2023-01-02] MEDS: DEXTROSE 5% WATER 1,000 ML IV SCH (01:55)
[2023-01-02 06:31] LABS: CHLORIDE 104 mEq/L (98-107)
[2023-01-02 07:58] VITALS: BP 109/58
[2023-01-02] MEDS: THIAMINE HCL 100MG TABLET PO SCH (08:14)
[2023-01-02] MEDS: ASCORBIC ACID 500 MG TABLET PO SCH (08:14)
[2023-01-02] MEDS: AMLODIPINE 10MG TABLET PO SCH (08:14)
[2023-01-02] MEDS: ZINC SULFATE 220 MG ( 50 ) CAPSULE PO SCH (08:14)
[2023-01-02] MEDS: FERROUS SULFATE 325MG TABLET PO SCH ×3 (08:14→16:30)
[2023-01-02] MEDS: FOLIC ACID 1MG TABLET PO SCH (08:14)
[2023-01-02] MEDS: DOCUSATE SODIUM 100MG CAPSULE PO PRN (08:14)
[2023-01-02] MEDS: MENTHOL/LANOLIN/CALAMINE/ZN OX OINT 71GM TOP SCH ×2 (08:18→22:02)
[2023-01-02] MEDS: ACETAMINOPHEN 325MG TABLET PO PRN ×2 (17:43→22:03)
[2023-01-02 20:00] VITALS: BP 112/64
[2023-01-02] MEDS: TAMSULOSIN HCL 0.4MG SR CAPSULE PO SCH (22:01)
[2023-01-02] MEDS: FAMOTIDINE 20MG TABLET PO SCH (22:01)
[2023-01-02] MEDS: FINASTERIDE 5MG TABLET PO SCH (22:01)
[2023-01-02] MEDS: ENOXAPARIN 30MG/0.3ML SYR SUBCUT SCH (22:02)
[2023-01-03 08:00] VITALS: BP 112/58
[2023-01-03] MEDS: FOLIC ACID 1MG TABLET PO SCH (08:29)
[2023-01-03] MEDS: ZINC SULFATE 220 MG ( 50 ) CAPSULE PO SCH (08:29)
[2023-01-03] MEDS: ASCORBIC ACID 500 MG TABLET PO SCH (08:29)
[2023-01-03] MEDS: THIAMINE HCL 100MG TABLET PO SCH (08:29)
[2023-01-03] MEDS: AMLODIPINE 10MG TABLET PO SCH (08:42)
[2023-01-03] MEDS: FERROUS SULFATE 325MG TABLET PO SCH ×3 (08:44→18:12)
[2023-01-03] MEDS: MENTHOL/LANOLIN/CALAMINE/ZN OX OINT 71GM TOP SCH ×2 (08:47→21:32)
[2023-01-03 20:00] VITALS: BP 95/54
[2023-01-03] MEDS: FAMOTIDINE 20MG TABLET PO SCH (21:30)
[2023-01-03] MEDS: FINASTERIDE 5MG TABLET PO SCH (21:30)
[2023-01-03] MEDS: ENOXAPARIN 30MG/0.3ML SYR SUBCUT SCH (21:30)
[2023-01-03] MEDS: TAMSULOSIN HCL 0.4MG SR CAPSULE PO SCH (21:30)
[2023-01-03] MEDS: ACETAMINOPHEN 325MG TABLET PO PRN (21:36)
[2023-01-04 06:12] LABS: BASOPHILS % 0.2 % (0.0-2.0); EOSINOPHILS % 5.6 % (0.0-5.0); HEMATOCRIT. 29.6 % (42.0-52.0); HEMOGLOBIN. 9.9 g/dL (14.0-18.0); LYMPHOCYTES % 48.2 % (20.0-50.0); MEAN CORPUSCULAR HEMOGLOBIN 28.8 pg (28.0-32.0); MEAN CORPUSCULAR VOLUME 86.2 fL (80.0-94.0); MEAN PLATELET VOLUME 6.9 fl (7.4-10.4); MONOCYTES % 6.2 % (2.0-8.0); NEUTROPHILS % 39.8 % (40.0-76.0); PLATELET 391 x1000/uL (130-400); RED BLOOD CELL COUNT 3.43 mill/uL (4.7-6.1); RED CELL DISTRIBUTION WIDTH 15.4 % (11.6-14.6)
[2023-01-04 06:27] LABS: CHLORIDE 109 mEq/L (98-107)
[2023-01-04 08:00] VITALS: BP 97/56
[2023-01-04] MEDS: AMLODIPINE 10MG TABLET PO SCH (08:44)
[2023-01-04] MEDS: DOCUSATE SODIUM 100MG CAPSULE PO PRN (08:46)
[2023-01-04] MEDS: FERROUS SULFATE 325MG TABLET PO SCH ×3 (08:46→16:36)
[2023-01-04] MEDS: FOLIC ACID 1MG TABLET PO SCH (08:46)
[2023-01-04] MEDS: THIAMINE HCL 100MG TABLET PO SCH (08:46)
[2023-01-04] MEDS: ASCORBIC ACID 500 MG TABLET PO SCH (09:00)
[2023-01-04] MEDS: ZINC SULFATE 220 MG ( 50 ) CAPSULE PO SCH ×2 (09:00→09:03)
[2023-01-04 20:04] VITALS: BP 124/49
[2023-01-04] MEDS: MENTHOL/LANOLIN/CALAMINE/ZN OX OINT 71GM TOP SCH (21:00)
[2023-01-04] MEDS: TAMSULOSIN HCL 0.4MG SR CAPSULE PO SCH (21:14)
[2023-01-04] MEDS: ENOXAPARIN 30MG/0.3ML SYR SUBCUT SCH (21:15)
[2023-01-04] MEDS: FINASTERIDE 5MG TABLET PO SCH (21:15)
[2023-01-04] MEDS: FAMOTIDINE 20MG TABLET PO SCH (21:15)
[2023-01-05 08:00] VITALS: BP 123/69
[2023-01-05] MEDS: ACETAMINOPHEN 325MG TABLET PO PRN (08:25)
[2023-01-05] MEDS: MENTHOL/LANOLIN/CALAMINE/ZN OX OINT 71GM TOP SCH ×2 (09:00→20:26)
[2023-01-05] MEDS: AMLODIPINE 10MG TABLET PO SCH (10:49)
[2023-01-05] MEDS: FOLIC ACID 1MG TABLET PO SCH (10:49)
[2023-01-05] MEDS: ASCORBIC ACID 500 MG TABLET PO SCH (10:50)
[2023-01-05] MEDS: FERROUS SULFATE 325MG TABLET PO SCH ×3 (10:50→17:24)
[2023-01-05] MEDS: THIAMINE HCL 100MG TABLET PO SCH (10:50)
[2023-01-05] MEDS: ZINC SULFATE 220 MG ( 50 ) CAPSULE PO SCH (10:50)
[2023-01-05 19:42] VITALS: BP 112/48
[2023-01-05] MEDS: FINASTERIDE 5MG TABLET PO SCH (20:26)
[2023-01-05] MEDS: FAMOTIDINE 20MG TABLET PO SCH (20:26)
[2023-01-05] MEDS: TAMSULOSIN HCL 0.4MG SR CAPSULE PO SCH (20:26)
[2023-01-05] MEDS: ENOXAPARIN 30MG/0.3ML SYR SUBCUT SCH (20:27)
[2023-01-06 08:00] VITALS: BP 110/61
[2023-01-06] MEDS: AMLODIPINE 10MG TABLET PO SCH (09:42)
[2023-01-06] MEDS: THIAMINE HCL 100MG TABLET PO SCH (09:42)
[2023-01-06] MEDS: ZINC SULFATE 220 MG ( 50 ) CAPSULE PO SCH (09:43)
[2023-01-06] MEDS: ASCORBIC ACID 500 MG TABLET PO SCH (09:43)
[2023-01-06] MEDS: FOLIC ACID 1MG TABLET PO SCH (09:43)
[2023-01-06] MEDS: DOCUSATE SODIUM 100MG CAPSULE PO PRN (09:43)
[2023-01-06] MEDS: FERROUS SULFATE 325MG TABLET PO SCH ×3 (09:43→17:26)
[2023-01-06] MEDS: MENTHOL/LANOLIN/CALAMINE/ZN OX OINT 71GM TOP SCH ×2 (09:47→21:00)
[2023-01-06] MEDS: FLUCONAZOLE 100MG TABLET PO SCH (13:01)
[2023-01-06] MEDS ORDERED: TAMS-11 PO (14:20)
[2023-01-06] MEDS ORDERED: FOLI-43 PO (14:20)
[2023-01-06] MEDS ORDERED: THIA100T72 PO (14:20)
[2023-01-06] MEDS ORDERED: FERR-63 PO (14:20)
[2023-01-06] MEDS ORDERED: ASCO500T20 PO (14:20)
[2023-01-06] MEDS ORDERED: ZINC220C2 PO (14:20)
[2023-01-06] MEDS ORDERED: AMLO10TA80 PO (14:20)
[2023-01-06] MEDS ORDERED: FINA5TAB11 PO (14:20)
[2023-01-06] MEDS ORDERED: FLUC100T PO (14:20)
[2023-01-06 20:00] VITALS: BP 100/54
[2023-01-06] MEDS: ENOXAPARIN 30MG/0.3ML SYR SUBCUT SCH (21:53)
[2023-01-06] MEDS: FINASTERIDE 5MG TABLET PO SCH (21:55)
[2023-01-06] MEDS: TAMSULOSIN HCL 0.4MG SR CAPSULE PO SCH (21:56)
[2023-01-06] MEDS: FAMOTIDINE 20MG TABLET PO SCH (21:56)
[2023-01-07] MEDS: ACETAMINOPHEN 325MG TABLET PO PRN (01:44)
[2023-01-07 08:00] VITALS: BP 116/62
[2023-01-07] MEDS: FOLIC ACID 1MG TABLET PO SCH (09:02)
[2023-01-07] MEDS: FLUCONAZOLE 100MG TABLET PO SCH (09:02)
[2023-01-07] MEDS: ASCORBIC ACID 500 MG TABLET PO SCH (09:03)
[2023-01-07] MEDS: FERROUS SULFATE 325MG TABLET PO SCH (09:03)
[2023-01-07] MEDS: ERGOCALCIFEROL 50000UNITS CAPSULE PO SCH (09:03)
[2023-01-07] MEDS: MENTHOL/LANOLIN/CALAMINE/ZN OX OINT 71GM TOP SCH (09:03)
[2023-01-07] MEDS: THIAMINE HCL 100MG TABLET PO SCH (09:03)
[2023-01-07] MEDS: AMLODIPINE 10MG TABLET PO SCH (09:03)
[2023-01-07 10:50] VITALS: BP 116/62
== END 2023-01-07 12:18 | disposition home health service (06) | DRG 535 ==
LOC: 4WST 14:23
PROVIDERS: ADMIT Physical Medicine & Rehabilitation Spinal Cord Injury Medicine; ATTEND Internal Medicine
DX: S72.012A Unspecified intracapsular fracture of left femur, initial encounter for closed fracture (principal); A41.51 Sepsis due to Escherichia coli [E. coli]; E43 Unspecified severe protein-calorie malnutrition; G93.41 Metabolic encephalopathy; E87.0 Hyperosmolality and hypernatremia; N13.6 Pyonephrosis; N17.9 Acute kidney failure, unspecified; M48.54XA Collapsed vertebra, not elsewhere classified, thoracic region, initial encounter for fracture; D64.9 Anemia, unspecified; E61.1 Iron deficiency; E87.6 Hypokalemia; F10.10 Alcohol abuse, uncomplicated; F39 Unspecified mood [affective] disorder; I12.9 Hypertensive chronic kidney disease with stage 1 through stage 4 chronic kidney disease, or unspecified chronic kidney disease; E55.9 Vitamin D deficiency, unspecified; R74.01 Elevation of levels of liver transaminase levels; R00.0 Tachycardia, unspecified; R53.81 Other malaise; R29.6 Repeated falls; N32.0 Bladder-neck obstruction; M48.061 Spinal stenosis, lumbar region without neurogenic claudication; N18.9 Chronic kidney disease, unspecified; Z82.1 Family history of blindness and visual loss; Z86.73 Personal history of transient ischemic attack (TIA), and cerebral infarction without residual deficits; Z87.891 Personal history of nicotine dependence; Z91.81 History of falling; Z68.21 Body mass index [BMI] 21.0-21.9, adult; E53.8 Deficiency of other specified B group vitamins
CPT/HCPCS: 36415; 80048; 80053; 81003; 82140; 82306; 82607; 82728; 82746; 82962; 83036; 83540; 83550; 84134; 84443; 85025; 87106; 92523; 93970; 97110; 97112; 97116; 97162; 97166; 97530; 97535; A6261; C1893; J1650; J2185; J3420; J7050; J7070

== ENCOUNTER 2023-01-15 08:48 | Emergency (ER) | payer MEDICARE, OTHER, MEDICAID ==
[~2023-01-15] VITALS: Ht 165.1 cm; Wt 55.0 kg
[~2023-01-15 08:48] MED LIST: AMLO10TA80 PO; ASCO500T20 PO; FERR-63 PO; FINA5TAB11 PO; FLUC100T PO; FOLI-43 PO; TAMS-11 PO; THIA100T72 PO; ZINC220C2 PO
[2023-01-15] MEDS ORDERED: IBUPROFEN 600MG TABLET PO ONE (09:15)
[2023-01-15] MEDS ORDERED: KETOROLAC 60MG/2ML VIAL IM ONE (11:45)
[2023-01-15] MEDS ORDERED: CYCL10TA21 MT (11:54)
[2023-01-15] MEDS ORDERED: MELO-105 MT (11:54)
[2023-01-16 06:32] VITALS: BP 124/67
== END 2023-01-16 08:33 | disposition home or self-care (01) ==
LOC: ER 09:01
DX: S30.0XXA Contusion of lower back and pelvis, initial encounter (principal); I10 Essential (primary) hypertension; Z87.81 Personal history of (healed) traumatic fracture; Z98.890 Other specified postprocedural states; W01.0XXA Fall on same level from slipping, tripping and stumbling without subsequent striking against object, initial encounter; Y93.89 Activity, other specified; Y92.018 Other place in single-family (private) house as the place of occurrence of the external cause
CPT/HCPCS: 72131; 96372; 99285; J1885; A4315

== ENCOUNTER 2023-04-04 11:27 | Emergency (ER) | payer MEDICARE, MEDICAID ==
[~2023-04-04] VITALS: Ht 167.6 cm; Wt 68.0 kg
[~2023-04-04 11:27] MED LIST changes: +CYCL10TA21 MT; +MELO-105 MT
[2023-04-04 13:40] LABS: BASOPHILS % 0.6 % (0.0-2.0); EOSINOPHILS % 3.3 % (0.0-5.0); HEMATOCRIT. 41.9 % (42.0-52.0); HEMOGLOBIN. 14.1 g/dL (14.0-18.0); LYMPHOCYTES % 49.7 % (20.0-50.0); MEAN CORPUSCULAR HEMOGLOBIN 29.1 pg (28.0-32.0); MEAN CORPUSCULAR VOLUME 86.4 fL (80.0-94.0); MEAN PLATELET VOLUME 8.1 fl (7.4-10.4); MONOCYTES % 5.3 % (2.0-8.0); NEUTROPHILS % 41.1 % (40.0-76.0); PLATELET 272 x1000/uL (130-400); RED BLOOD CELL COUNT 4.85 mill/uL (4.7-6.1); RED CELL DISTRIBUTION WIDTH 13.3 % (11.6-14.6)
[2023-04-04 13:45] LABS: CHLORIDE 106 mEq/L (98-107)
[2023-04-04 13:50] LABS: CLARITY URINE TURBID (CLEAR); COLOR URINE YELLOW (YELLOW); KETONES URINE NEGATIVE (NEGATIVE); LEUKOCYTE ESTERASE URINE 3+ (NEGATIVE); NITRITE URINE POSITIVE (NEGATIVE); OCCULT BLOOD URINE NEGATIVE (NEGATIVE); PH URINE >=9.0 (4.5-8.0); PROTEIN URINE 3+ (NEGATIVE); SPECIFIC GRAVITY URINE 1.016 (1.005-1.030)
[2023-04-04 13:51] LABS: INR 1.2; PROTHROMBIN TIME 12.4 sec (9.6-11.0)
[2023-04-04] MEDS ORDERED: CEFTRIAXONE 1GM PREMIX 50 ML IV ONE (16:30)
[2023-04-04] MEDS ORDERED: CEFP200T13 MT (16:42)
[2023-04-04 17:16] VITALS: BP 141/68
== END 2023-04-04 17:17 | disposition home or self-care (01) ==
LOC: ER 11:27
DX: T83.84XA Pain due to genitourinary prosthetic devices, implants and grafts, initial encounter (principal); N39.0 Urinary tract infection, site not specified; E78.00 Pure hypercholesterolemia, unspecified; I10 Essential (primary) hypertension; Y84.6 Urinary catheterization as the cause of abnormal reaction of the patient, or of later complication, without mention of misadventure at the time of the procedure
CPT/HCPCS: 36415; 74176; 80053; 81003; 85025; 87186; 99284; A4315

== ENCOUNTER 2023-12-05 08:23 | Emergency (ER) | payer MEDICARE, MEDICAID ==
[~2023-12-05] VITALS: Ht 172.7 cm; Wt 66.0 kg
[~2023-12-05 08:23] MED LIST changes: +ACET-2708 MT; +ASPI-1160 PO; +ATOR20TA PO; +CEFP200T13 MT; +CEPH500C2 MT; +DILT30TA37 PO; +FINA1TAB18 MT; +HYDR-4001 MT; +MULT-1146 MT; +NITR100C MT; +TAMS-11 MT
[2023-12-05 08:33] VITALS: O2SAT 98
[2023-12-05] MEDS ORDERED: KETOROLAC 30MG/ML VIAL IV STA (09:52)
[2023-12-05 10:28] LABS: CLARITY URINE CLOUDY (CLEAR); COLOR URINE YELLOW (YELLOW); GLUCOSE URINE NEGATIVE (NEGATIVE); KETONES URINE NEGATIVE (NEGATIVE); LEUKOCYTE ESTERASE URINE 2+ (NEGATIVE); NITRITE URINE POSITIVE (NEGATIVE); OCCULT BLOOD URINE TRACE (NEGATIVE); PH URINE 7.5 (4.5-8.0); PROTEIN URINE 1+ (NEGATIVE); SPECIFIC GRAVITY URINE 1.014 (1.005-1.030); UROBILINOGEN URINE 0.2 E.U./dL (0.2-1.0)
[2023-12-05 10:55] LABS: MUCUS URINE 1+ /lpf (NONE/TRACE); SQUAMOUS EPITHELIAL CELL URINE RARE /lpf (RARE/1+)
[2023-12-05 10:56] LABS: BACTERIA URINE 3+; RBC URINE 0-2 /hpf (0-2); WBC URINE 25-50 /hpf (0-2)
[2023-12-05 11:09] LABS: BASOPHILS % 0.9 % (0.0-2.0); EOSINOPHILS % 5.2 % (0.0-5.0); HEMATOCRIT. 44.3 % (42.0-52.0); HEMOGLOBIN. 14.6 g/dL (14.0-18.0); LYMPHOCYTES % 44.3 % (20.0-50.0); MEAN CORPUSCULAR HEMOGLOBIN 28.7 pg (28.0-32.0); MEAN CORPUSCULAR HGB CONC 33.1 g/dL (31.0-37.0); MEAN CORPUSCULAR VOLUME 86.7 fL (80.0-94.0); MEAN PLATELET VOLUME 8.3 fl (7.4-10.4); MONOCYTES % 6.4 % (2.0-8.0); NEUTROPHILS % 43.2 % (40.0-76.0); PLATELET 240 x1000/uL (130-400); RED CELL DISTRIBUTION WIDTH 13.6 % (11.6-14.6); WHITE BLOOD COUNT 6.8 x1000/uL (4.5-11.0)
[2023-12-05 11:25] LABS: ALANINE AMINOTRANSFERASE 21 IU/L (10-49); ALBUMIN 3.9 g/dL (3.2-4.8); ASPARTATE AMINOTRANSFERASE 25 IU/L (<34); BILIRUBIN TOTAL 0.4 mg/dL (0.1-1.0); CALCIUM 8.9 mg/dL (8.7-10.4); CARBON DIOXIDE 23 mEq/L (21-32); CHLORIDE 108 mEq/L (98-107); CREATININE 1.3 mg/dL (0.6-1.3); GLUCOSE 92 mg/dL (70-105); PROTEIN TOTAL 7.5 g/dL (6.0-8.3); SODIUM 139 mEq/L (136-145); UREA NITROGEN BLOOD 17 mg/dL (9-23)
[2023-12-05 11:32] LABS: TROPONIN I HIGH SENSITIVITY < 4 ng/L (3.0-53)
[2023-12-05] MEDS ORDERED: CEFP200T13 MT (11:47)
[2023-12-05] MEDS ORDERED: KETOROLAC 15MG/ML VIAL IV NR (12:00)
[2023-12-05 12:17] VITALS: BP 131/75; PULSE 76; RESP 20; TEMP 98.3
== END 2023-12-05 12:43 | disposition home or self-care (01) ==
LOC: ER 08:23
DX: N39.0 Urinary tract infection, site not specified (principal); E78.00 Pure hypercholesterolemia, unspecified; I10 Essential (primary) hypertension; Z79.899 Other long term (current) drug therapy
CPT/HCPCS: 99285; 74176; 96374; 71045; 80053; 81003; 85025; 87086; 87186; 84484; 87077; 36415; 93005; J1885

== ENCOUNTER 2023-12-13 15:08 | Emergency (ER) | payer MEDICARE, MEDICAID ==
[~2023-12-13] VITALS: Ht 170.2 cm; Wt 65.0 kg
[2023-12-13 15:24] VITALS: O2SAT 97
[2023-12-13 16:33] LABS: BASOPHILS % 1.1 % (0.0-2.0); EOSINOPHILS % 5.3 % (0.0-5.0); HEMATOCRIT. 41.9 % (42.0-52.0); HEMOGLOBIN. 14.1 g/dL (14.0-18.0); LYMPHOCYTES % 45.3 % (20.0-50.0); MEAN CORPUSCULAR HEMOGLOBIN 29.2 pg (28.0-32.0); MEAN CORPUSCULAR HGB CONC 33.6 g/dL (31.0-37.0); MEAN PLATELET VOLUME 8.2 fl (7.4-10.4); MONOCYTES % 7.6 % (2.0-8.0); NEUTROPHILS % 40.7 % (40.0-76.0); PLATELET 205 x1000/uL (130-400); RED BLOOD CELL COUNT 4.82 mill/uL (4.7-6.1); WHITE BLOOD COUNT 5.6 x1000/uL (4.5-11.0)
[2023-12-13 16:40] LABS: ALANINE AMINOTRANSFERASE 12 IU/L (10-49); ALBUMIN 4.3 g/dL (3.2-4.8); ASPARTATE AMINOTRANSFERASE 18 IU/L (<34); BILIRUBIN TOTAL 0.3 mg/dL (0.1-1.0); CALCIUM 9.8 mg/dL (8.7-10.4); CARBON DIOXIDE 32 mEq/L (21-32); CHLORIDE 105 mEq/L (98-107); CREATININE 1.3 mg/dL (0.6-1.3); GLUCOSE 76 mg/dL (70-105); SODIUM 143 mEq/L (136-145); UREA NITROGEN BLOOD 16 mg/dL (9-23)
[2023-12-13 18:53] LABS: CLARITY URINE TURBID (CLEAR); COLOR URINE RED (YELLOW); GLUCOSE URINE NEGATIVE (NEGATIVE); KETONES URINE NEGATIVE (NEGATIVE); LEUKOCYTE ESTERASE URINE 1+ (NEGATIVE); NITRITE URINE POSITIVE (NEGATIVE); OCCULT BLOOD URINE 3+ (NEGATIVE); PH URINE 8.5 (4.5-8.0); PROTEIN URINE 1+ (NEGATIVE); SPECIFIC GRAVITY URINE 1.015 (1.005-1.030); UROBILINOGEN URINE 0.2 E.U./dL (0.2-1.0)
[2023-12-13 19:15] LABS: BACTERIA URINE 2+; RBC URINE TNTC /hpf (0-2); SQUAMOUS EPITHELIAL CELL URINE FEW /lpf (RARE/1+)
[2023-12-13] MEDS ORDERED: CEFP200T13 MT (19:42)
[2023-12-14 01:03] VITALS: BP 143/70; PULSE 75; RESP 15; TEMP 97.6
== END 2023-12-14 01:07 | disposition home or self-care (01) ==
LOC: ER 15:08
DX: N39.0 Urinary tract infection, site not specified (principal); R31.9 Hematuria, unspecified; E78.00 Pure hypercholesterolemia, unspecified; I10 Essential (primary) hypertension; Z79.899 Other long term (current) drug therapy
CPT/HCPCS: 36415; 51702; 74176; 80053; 81003; 85025; 99284

== ENCOUNTER 2024-04-03 18:27 | Emergency (ER) | payer MEDICARE, MEDICAID ==
[~2024-04-03] VITALS: Ht 167.6 cm; Wt 59.0 kg
[2024-04-03 18:37] VITALS: TEMP 96.8; O2SAT 99
[2024-04-03] MEDS ORDERED: TRAMADOL 50MG TABLET PO ONE (18:45)
[2024-04-03] MEDS ORDERED: LIDOCAINE HCL 2% JELLY 5ML MM ONE (19:45)
[2024-04-03 20:23] VITALS: BP 166/89; PULSE 113; RESP 16
[2024-04-03] MEDS: TRAMADOL 50MG TABLET PO NR (20:23)
[2024-04-03] MEDS: LIDOCAINE 2% 6ML GLYDO MM NR (21:13)
[2024-04-03 21:25] LABS: BASOPHILS % 0.9 % (0.0-2.0); EOSINOPHILS % 2.5 % (0.0-5.0); HEMATOCRIT. 45.7 % (42.0-52.0); HEMOGLOBIN. 15.5 g/dL (14.0-18.0); LYMPHOCYTES % 30.2 % (20.0-50.0); MEAN CORPUSCULAR HEMOGLOBIN 29.1 pg (28.0-32.0); MEAN CORPUSCULAR HGB CONC 33.8 g/dL (31.0-37.0); MEAN CORPUSCULAR VOLUME 86.1 fL (80.0-94.0); MEAN PLATELET VOLUME 8.3 fl (7.4-10.4); MONOCYTES % 5.9 % (2.0-8.0); NEUTROPHILS % 60.5 % (40.0-76.0); PLATELET 236 x1000/uL (130-400); RED BLOOD CELL COUNT 5.31 mill/uL (4.7-6.1); RED CELL DISTRIBUTION WIDTH 14.7 % (11.6-14.6); WHITE BLOOD COUNT 6.6 x1000/uL (4.5-11.0)
[2024-04-03 21:26] LABS: POTASSIUM 3.8 mEq/L (3.5-5.1)
[2024-04-03 21:26] LABS: CLARITY URINE CLEAR (CLEAR); COLOR URINE YELLOW (YELLOW); GLUCOSE URINE NEGATIVE (NEGATIVE); KETONES URINE NEGATIVE (NEGATIVE); LEUKOCYTE ESTERASE URINE 3+ (NEGATIVE); NITRITE URINE POSITIVE (NEGATIVE); OCCULT BLOOD URINE 2+ (NEGATIVE); PH URINE 7.5 (4.5-8.0); PROTEIN URINE NEGATIVE (NEGATIVE); SPECIFIC GRAVITY URINE 1.006 (1.005-1.030); UROBILINOGEN URINE 0.2 E.U./dL (0.2-1.0)
[2024-04-03 21:28] LABS: CALCIUM 9.9 mg/dL (8.7-10.4)
[2024-04-03 21:33] LABS: CREATININE 1.2 mg/dL (0.6-1.3)
[2024-04-03] MEDS ORDERED: CEPH500C2 MT (21:40)
[2024-04-03 21:48] LABS: BACTERIA URINE 2+; RBC URINE 0-2 /hpf (0-2); SQUAMOUS EPITHELIAL CELL URINE 1+ /lpf (RARE/1+)
== END 2024-04-04 05:05 | disposition home or self-care (01) ==
LOC: ER 18:27
DX: N13.9 Obstructive and reflux uropathy, unspecified (principal); N40.0 Benign prostatic hyperplasia without lower urinary tract symptoms; I10 Essential (primary) hypertension
CPT/HCPCS: 36415; 51702; 80048; 81003; 85025; 99284

== ENCOUNTER 2024-12-03 02:28 | Emergency (ER) | payer MEDICARE, MEDICAID ==
[~2024-12-03] VITALS: Ht 160 cm; Wt 50.0 kg
[~2024-12-03 02:28] MED LIST changes: +FINA1TAB14 MT; -FINA1TAB18 MT
[2024-12-03 02:44] VITALS: BP 164/68; PULSE 48; RESP 20; TEMP 98.6; O2SAT 95
[2024-12-03] MEDS: ACETAMINOPHEN 325MG TABLET PO ONE (05:13)
== END 2024-12-03 05:49 | disposition home or self-care (01) ==
LOC: ER 02:28
DX: T83.018A Breakdown (mechanical) of other urinary catheter, initial encounter (principal); I10 Essential (primary) hypertension; E78.00 Pure hypercholesterolemia, unspecified; Z79.899 Other long term (current) drug therapy; X58.XXXA Exposure to other specified factors, initial encounter
CPT/HCPCS: 51702; 99284